=== PATIENT | female | born 1970 | race Asian ===

== ENCOUNTER 2017-03-29 12:15 | Day surgery (SDC) | payer OTHER ==
[~2017-03-29] VITALS: Ht 163.8 cm; Wt 72.0 kg
[~2017-03-29 12:15] MED LIST: ATOR80TA PO; BACL20TA PO; GLPZ5T PO; IBUP-1152 PO; LANS15CA PO; LOSA25TA21 PO; METF-496 PO; OXYC-176 PO; PANT40TA3 PO
[2017-03-29] MEDS ORDERED: fentaNYL-PF 50 mCg/mL 2 mL Inj IVPUSH PRN (13:00)
[2017-03-29 13:21] VITALS: BP 117/80; PULSE 82; RESP 14; O2SAT 94
[2017-03-29] MEDS ORDERED: OXYC1TAB24 PO (13:24)
[2017-03-29] MEDS ORDERED: 0.9% Sodium Chloride 1,000 ML IV ONE (15:44)
[2017-03-29 16:20] VITALS: BP 110/70; PULSE 70; RESP 14; O2SAT 93
--- NOTE | 2017-03-29 16:25 | ENDO ---
[address] [address] ENDOSCOPY PROCEDURE PATIENT: VARUN NUNEZ : 1970 MR#: [id number] ADMIT: 03/29/2017 JOB ID: [id number] DATE: 03/29/2017 PREPROCEDURE DIAGNOSIS(ES): History of peptic ulcer disease; family history of gastric cancer. POSTPROCEDURE DIAGNOSIS: History of peptic ulcer disease; family history of gastric cancer. PROCEDURE PERFORMED: Upper endoscopy. SURGEON: Carmen Gonzalez MD HISTORY OF PRESENT ILLNESS: This is a 47-year-old woman with a history of peptic ulcer disease who also had a family member recently of gastric cancer. She was consented for upper endoscopy to rule out cancer and ulcers. DESCRIPTION OF PROCEDURE: The patient was brought to the procedural suite and placed in left lateral decubitus position. Moderate anesthesia was induced. The endoscope was advanced into the esophagus, stomach, and proximal portion of D3. The entire examined esophagus, stomach, and duodenum were normal. The squamocolumnar junction was normal. There were no gastric masses, ulcers, or polyps. Retroflexed examination revealed a Hill grade 2 flap valve, although there was no hiatal hernia. The endoscope was withdrawn. The patient tolerated the procedure well. COMPLICATIONS: None. SPECIMENS: None. ESTIMATED BLOOD LOSS: None.
--- NOTE | 2017-03-29 16:29 | ENDO ---
[address] [address] ENDOSCOPY PROCEDURE PATIENT: VARUN NUNEZ : 1970 MR#: [id number] ADMIT: 03/29/2017 JOB ID: [id number] DATE: 03/29/2017 PREPROCEDURE DIAGNOSIS: Constipation, hemorrhoids. POSTPROCEDURAL DIAGNOSIS: Constipation, hemorrhoids. PROCEDURE PERFORMED: Colonoscopy. SURGEON: Carmen Gonzalez MD INSTRUMENT: [employer] PCF H 180 AL. PREPARATION QUALITY: Adequate. WITHDRAWAL TIME: 16 minutes. HISTORY OF PRESENT ILLNESS: This is a 47-year-old woman who presented to my office with a complaint of symptomatic hemorrhoids. She had some bleeding, and also complained of constipation at the age of 47, therefore colonoscopy was scheduled. FINDINGS: 1. Internal and external hemorrhoids. 2. Normal colonoscopy to the cecum, with the exception of a few scattered diverticula. DESCRIPTION OF PROCEDURE: The patient was brought to the endoscopy suite and placed in left lateral decubitus position. Moderate anesthesia was induced. An upper endoscopy was performed prior to the procedure; please see the separate dictation for this. Attention was turned to the colonoscopy. Digital rectal examination was performed and was normal, with The exception of a somewhat tight sphincter. External hemorrhoids were visualized. The colonoscope was advanced to the cecum which was identified by the terminal ileum and appendiceal orifice. There was some succus which required suctioning, but ultimately the prep was considered to be adequate and all the mucosa was visualized. There were some scattered diverticula in the sigmoid colon and in the cecum. The entire colon was normal, with no strictures, masses, or polyps. Retroflexed examination of the rectum revealed internal hemorrhoids. The scope was withdrawn. The patient tolerated the procedure well. COMPLICATIONS: None. ESTIMATED BLOOD LOSS: None. SPECIMENS: None.
[2017-03-29 16:32] VITALS: BP 115/85; PULSE 79; RESP 14; O2SAT 97
== END 2017-03-29 23:59 | disposition home or self-care (01) ==
LOC: END 12:15
PROVIDERS: ATTEND Surgery
DX: Z12.11 Encounter for screening for malignant neoplasm of colon (principal); K64.8 Other hemorrhoids; K64.4 Residual hemorrhoidal skin tags; K27.9 Peptic ulcer, site unspecified, unspecified as acute or chronic, without hemorrhage or perforation; K59.00 Constipation, unspecified; E11.9 Type 2 diabetes mellitus without complications; E78.5 Hyperlipidemia, unspecified; I10 Essential (primary) hypertension; K21.9 Gastro-esophageal reflux disease without esophagitis; F17.210 Nicotine dependence, cigarettes, uncomplicated; Z90.710 Acquired absence of both cervix and uterus; Z79.84 Long term (current) use of oral hypoglycemic drugs; Z80.0 Family history of malignant neoplasm of digestive organs
CPT/HCPCS: 43235; 99153; G0121; G0500; J2250; J3010; J7030

== ENCOUNTER → 2017-04-06 | Day surgery (SDC) | payer OTHER ==
[~2017-04-06] VITALS: Ht 162.6 cm; Wt 73.0 kg
[2017-04-06] VITALS (7 sets, daily range): BP systolic 115–151; BP diastolic 65–90; PULSE 77–86; RESP 12–19; O2SAT 93–100
[~2017-04-06] MED LIST changes: +Atropine 0.4 mg/mL Inj IVPUSH PRN; -BACL20TA PO; +Bupivacaine Liposome 1.3% 20 mL Inj ONE; +Bupivacaine-MPF 0.5% 30 mL Inj INFILTRATE ONE; +Dexamethasone 4 mg/mL Inj IVPUSH PRN; +EPHEDrine Sulfate 50 mg/mL Inj IVPUSH PRN; +HYDROmorphone 1 mg/mL Inj IVPUSH PRN; -IBUP-1152 PO; -LANS15CA PO; +Labetalol 5 mg/mL 20 mL Inj IV PRN; +Lactated Ringer's 1,000 ML IV SCH; +Lactated Ringer's 500 ML IV PRN; +MetoCLOpramide 5 mg/mL 2 mL Inj IVPUSH PRN; -OXYC-176 PO; +OXYC1TAB24 PO; +Ondansetron 2 mg/mL 2 mL Inj IVPUSH PRN; +Ondansetron 2 mg/mL 2 mL Inj ONE; +Phenylephrine 10,000 mCg/mL Inj IVPUSH PRN; +Succinylcholine Chloride 20 mg/mL 5 mL Inj ONE; +fentaNYL-PF 50 mCg/mL 2 mL Inj IVPUSH PRN; +fentaNYL-PF 50 mCg/mL 2 mL Inj ONE; +hydrALAZINE 20 mg/mL Inj IVPUSH PRN; +oxyCODONE-Acetamin 5-325 mg Tablet PO PRN
[2017-04-06] MEDS: Lactated Ringer's 1,000 ML IV SCH ×2 (15:09→16:20)
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
--- NOTE | 2017-04-06 17:00 | PCM.SURGOP ---
Surgical Operative Report Date of Service: Apr 06, 2017 Pre Operative Diagnosis Symptomatic hemorrhoids Post Operative Diagnosis Symptomatic hemorrhoids Procedure: Excision of left anterolateral pedunculated perianal lesion, and right posterolateral hemorrhoidal column. Surgeon and Flight Engineer Instructor: Surgeon: Carmen Gonzalez MD Assistants: Samy Gauthier PA-C 3: Ely Niesha, MS 3 Indication for Procedure This is a 47-year-old woman who presented with symptomatic hemorrhoids and a pedunculated perianal lesion at the left anterolateral position. She was due for a colonoscopy, and underwent this, which was benign. Findings: 1. Left anterolateral 1 cm pedunculated lesion had a stalk that was approximately 1.5 cm in length. It was entirely removed and appeared to be arising from the dentate line. 2. Right posterior lateral hemorrhoidal column was enlarged and was resected. Procedure Details The patient was prophylactically placed in supine position. General anesthesia was induced. A warming blanket was placed. She was repositioned into high lithotomy. The operative field was prepped and draped in sterile fashion. Presurgical time out was performed to confirm the correct patient, procedure, and site. Perianal examination and examination of the rectal canal revealed a left anterolateral pedunculated lesion on a stalk extending from the dentate line. Marcaine was injected for analgesia. The lesion was resected with a LigaSure device with care taken to preserve the sphincters. Further examination revealed an enlarged postero-lateral right-sided hemorrhoidal external and internal column, which was removed with a LigaSure device with care taken to avoid the sphincter complex. Liposomal bupivacaine was injected circumferentially for postoperative analgesia. A pad was placed. The patient was awakened from general anesthesia and taken to the postoperative care unit in good condition. Complications There were no periprocedural complications identified. Surgical Specimen Removed: Yes Specimen sent to Pathology: Yes Surgical Specimen description: 1. Left anterolateral pedunculated perianal lesion. 2. Right posterior lateral hemorrhoidal column. Anesthetic Plan: GA Grafts, Implants: None Output, Estimated Blood Loss: 2 (ml) Blood Administration during cronin: No Carmen Gonzalez MD Apr 06, 2017 17:00
--- NOTE | 2017-04-06 17:15 | PCM.ANEP1 ---
Post Anesthesia PACU Phase 1 Assessment Date of Service: Apr 06, 2017 Vital Signs Vital Signs Date Time Temp Pulse Resp B/P Pulse Ox O2 Delivery O2 Flow Rate FiO2 04/06/17 17:10 36.5 79 16 151/87 100 Simple Mask 10 04/06/17 15:15 35.8 77 16 115/76 98 Room Air Anesthetic Administered: GA Level of Alertness: Awake, talking CELIS's with Equal Strength: Yes Pain: No Nausea or Vomiting: No CV Function & Hydration Stable: Yes Airway Device: Oxygen Delivery: Room Air Lungs: Normal Air Movement Dermatome Level: Full Sensation PACU Phase 2 Assessment Complications: No Follow up Care: N/A Patient Instructions Provided: N/A Rocco Jara MD Apr 06, 2017 17:15
--- NOTE | 2017-04-11 16:43 | PATH ---
SURGICAL PATHOLOGY Attending Physician:Carmen Gonzalez MD CASE STATUS: Signed Out PATIENT NAME: VARUN NUNEZ PID: [id number] : 1970 DATE COLLECTED:04/06/2017 00:00 SPECIMEN: 1: Anus, Biopsy 2: Hemorrhoids CLINICAL HISTORY: INTERNAL AND EXTERNAL HEMORRHOIDS 1). LEFT ANTERIOR LATERAL ANAL POLYP, TIF 16:48 2). RIGHT POSTERIOR LATERAL HEMORRHOIDAL POLYP, TIF 16:50 FINAL DIAGNOSIS: 1.LEFT ANTERIOR LATERAL ANAL POLYP, EXCISION: POLYPOID FRAGMENT OF SQUAMOUS [place]UC[place] WITH FEATURES OF PROLAPSE AND VASCULAR PROLIFERATION SUGGESTIVE OF HEMANGIOMA. Negative for epithelial dysplasia or malignancy. 2.RIGHT POSTERIOR LATERAL HEMORRHOIDAL POLYP, EXCISION: HEMORRHOIDS. [id number] NOTE: As part of a routine quality control manager, Dr. Araujo has also reviewed Part 1 of this case and agrees with the diagnosis. GROSS DESCRIPTION: 1. Received in formalin, labeled with the patient' s name and "left anterior lateral polyp", is one fragment of burdick, soft tissue measuring 0.8 x 0.8 x 0.4 cm. The fragment is bisected and totally submitted in cassette 1A. 2. Received in formalin, labeled with the patient' s name and "right posterior lateral hemorrhoidal polyp", is one fragment of burdick, soft tissue measuring 1.7 x 0.8 x 0.8 cm. The fragment is bisected and totally submitted in cassette 2A. ([id number]) MICRO DESCRIPTION: See diagnosis. ICD-9 CODES: CPT CODES: 1: 53424 2: 67774 Electronically Signed Out Fuentes Mccall MD, Ph.D. [facility] Pathology [facility] [address], [place] [address] Technical component performed at [facility], [facility] [address], [place], [address]
== END | disposition home or self-care (01) ==
LOC: SAS 14:54
PROVIDERS: ATTEND Surgery
DX: K64.8 Other hemorrhoids (principal); K64.4 Residual hemorrhoidal skin tags; E11.9 Type 2 diabetes mellitus without complications; E78.5 Hyperlipidemia, unspecified; I10 Essential (primary) hypertension; K21.9 Gastro-esophageal reflux disease without esophagitis; Z79.84 Long term (current) use of oral hypoglycemic drugs; F17.210 Nicotine dependence, cigarettes, uncomplicated
CPT/HCPCS: 46255; J0330; J2250; J2405; J3010; J7120